=== PATIENT | female | born 1960 | race Caucasian/White ===

== ENCOUNTER 2016-07-16 13:40 | Emergency (ER) | payer OTHER ==
[2016-07-16 12:48] LABS: BASOPHILS 0.5 %; BASOPHILS ABSOLUTE 0.06 10/3/uL (0.0-0.16); EOSINOPHILS 2.3 %; EOSINOPHILS ABSOLUTE 0.27 10/3/uL (0.0-0.53); ER CBC TAT 0 Hrs 08 Mins; HEMATOCRIT 39.3 % (36.0-48.0); HEMOGLOBIN 13.5 g/dL (12.0-16.0); IMMATURE GRANULOCYTES 0.2 %; IMMATURE GRANULOCYTES ABSOLUTE 0.02 10/3/uL (0.0-0.11); LYMPHOCYTES 15.4 %; LYMPHOCYTES ABSOLUTE 1.84 10/3/uL (0.67-4.30); MEAN CORPUS HGB CONC 34.4 g/dL (32.0-36.0); MEAN CORPUSCULAR HEMOGLOB 31.4 pg (26.0-34.0); MEAN CORPUSCULAR VOLUME 91.4 fL (80-100); MEAN PLATELET VOLUME 10.7 fL (9.2-13.0); MONOCYTES 4.9 %; MONOCYTES ABSOLUTE 0.58 10/3/uL (0.21-1.20); NEUTROPHILS 76.7 %; NEUTROPHILS ABSOLUTE 9.16 10/3/uL (2.02-8.40); PLATELET COUNT 252 10/3/uL (150-400); RBC DISTRIBUTION WIDTH 12.6 % (12.0-16.0); WHITE BLOOD CELLS 11.9 10/3/uL (4.5-10.5)
[2016-07-16 12:49] LABS: MANUAL DIFF NO %
[2016-07-16 12:57] LABS: ASCORBIC ACID (UR NOT ORDER) NEG (NEG); BILIRUBIN, URINE NEGATIVE (NEG); ER URINALYSIS TAT 0 Hrs 00 Mins; KETONE, URINE NEGATIVE (NEG); LEUKOCYTE ESTERASE(NOT OR NEG (NEG); NITRITE (URINE) NEG (NEG); WBC (NOT ORDERED) (RFLEX) 1 (0-5)
[2016-07-16 13:02] LABS: INFLUENZA A SCREEN NEGATIVE (NEGATIVE); INFLUENZA B SCREEN NEGATIVE (NEGATIVE)
[2016-07-16 13:07] LABS: A/G RATIO 0.8 (0.7-1.9); ALBUMIN 3.3 G/DL (3.5-5.0); ALKALINE PHOSPHATASE 72 U/L (45-117); BUN (BLOOD UREA NITROGEN) 10 MG/DL (6-23); CALCIUM, SERUM 8.8 MG/DL (8.5-10.4); CHLORIDE, SERUM 103 MMOL/L (96-112); CO2 (CARBON DIOXIDE) 26 MMOL/L (24-34); CREATININE 0.86 MG/DL (0.55-1.02); GFR AFRICAN AMERICAN 88 ML/MIN (>=60); GFR NON AFRICAN AMERICAN 76 ML/MIN (>=60); GLOBULIN 4.4 G/DL (2.5-4.1); GLUCOSE, SERUM 110 MG/DL (60-99); POTASSIUM, SERUM 3.3 MMOL/L (3.5-5.3); SGOT(AST) 11 U/L (5-40); SGPT(ALT) 18 U/L (5-65); SODIUM, SERUM 141 MMOL/L (135-148); TOTAL BILIRUBIN 0.3 MG/DL (0-1.2); TOTAL PROTEIN 7.7 G/DL (6.0-8.5); TROPONIN I <0.02 NG/ML (<0.05)
== END 2016-07-16 16:17 | disposition home or self-care (01) ==
LOC: ER 13:40
PROVIDERS: Nurse Practitioner
DX: H81.10 Benign paroxysmal vertigo, unspecified ear (principal)
CPT/HCPCS: 70450; 80053; 81001; 83690; 84484; 84703; 85025; 87804; 93005; 96374; 96375; 99285; A9270-GY; J2405; J2550